=== PATIENT | female | born 1950 | race Caucasian/White ===

== ENCOUNTER 2016-08-05 23:19 | Emergency (ER) | payer SELFPAY ==
[~2016-08-05] VITALS: Ht 165.1 cm; Wt 78.0 kg
[2016-08-05 23:23] VITALS: BP 90/54; PULSE 48; RESP 16; TEMP 97.6; O2SAT 99
[2016-08-05] MEDS ORDERED: SODIUM CHLOR 0.9% 1000 ML INJ 1,000 ML IV ONE (23:45)
[2016-08-05] MEDS ORDERED: ONDANSETRON HCL 4 MG/2 ML VIAL IV PUSH ONE (23:45)
[2016-08-05] MEDS ORDERED: MORPHINE SULFATE 4 MG/ML INJ IV PUSH ONE (23:45)
[2016-08-05] MEDS ORDERED: MULTTAB25 (23:48)
[2016-08-05] MEDS ORDERED: ASPI81TA19 (23:48)
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
[2016-08-06] MEDS ORDERED: PROPOFOL 200 MG/20 ML AMP IV ONE (00:45)
[2016-08-06 00:54] VITALS: O2SAT 100
[2016-08-06] MEDS ORDERED: NORC5TAB PO (01:19)
[2016-08-06] MEDS ORDERED: IBUP400T20 PO (01:19)
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
== END 2016-08-06 04:54 | disposition home or self-care (01) ==
LOC: NEPC 23:19
DX: S52.502A Unspecified fracture of the lower end of left radius, initial encounter for closed fracture (principal); S52.612A Displaced fracture of left ulna styloid process, initial encounter for closed fracture; W01.0XXA Fall on same level from slipping, tripping and stumbling without subsequent striking against object, initial encounter; Y93.89 Activity, other specified
CPT/HCPCS: 25605; 73100; 96361; 96374; 96375; 99152; 99153; 99285; J2270; J2405; J7030